=== PATIENT | male | born 1940 | race Two or more races ===

== ENCOUNTER 2025-07-14 15:43 | Emergency (ER) | payer MEDICARE ==
[~2025-07-14] VITALS: Ht 162.6 cm; Wt 72.6 kg
[2025-07-14 18:02] VITALS: BP 119/71; TEMP 97.9; O2SAT 98
== END 2025-07-14 18:02 | disposition home or self-care (01) ==
LOC: ER 15:55
DX: S09.90XA Unspecified injury of head, initial encounter (principal); I10 Essential (primary) hypertension; E78.00 Pure hypercholesterolemia, unspecified; W22.8XXA Striking against or struck by other objects, initial encounter; Y93.89 Activity, other specified; Y92.481 Parking lot as the place of occurrence of the external cause; Y99.9 Unspecified external cause status
CPT/HCPCS: 70450-TC; 72125-TC